=== PATIENT | male | born 1975 | race Caucasian/White ===

== ENCOUNTER 2019-08-21 04:57 | Outpatient (CLI) | payer MEDICARE ==
[~2019-08-21] VITALS: Ht 167.6 cm; Wt 84.1 kg
--- NOTE | ~2019-08-21 | HEMODYNAMI ---
PATIENT:BRAULIO BRANHAM MEDICAL RECORD: [id number] : 73 LOCATION:[facility] ADMISSION DATE: 08/21/19 Generatedon:08/21/20199:31 Patient name: BRAULIO BRANHAM Patient #: [id number] SSN: : 1975 Date of study: 08/21/2019 Page: Of Hemodynamic Procedure Report Patient Data Patient Demographics Procedure consent was obtained First Name: BRAULIO Gender: Male Last Name: CARROL : 1975 Patient #: [id number] Age: 44 year(s) Race: Unknown Additional ID: [id number] Contact details [address]: [address] [place] [address] State: [place] City: [place] Zip code: [address] Admission Admission Data Admission Date: 08/21/2019 Admission Time: 4:57 Procedure Procedure Types Cath Procedure Diagnostic Procedure LHC LHC w/Coronaries FFR/IVUS FFR Initial FFR Additional Sedation Charges Moderate Sedation up to 30 minutes PCI Procedure Coronary Stent Coronary Stent Initial x2 Hemochron ACT Test Procedure Description Procedure Date Procedure Date: 08/21/2019 Procedure Start Time: 8:56 Procedure End Time: 9:26 Procedure Staff Name Function Maxwell Knight MD Performing Physician Karyn Black RT Monitor Sary Kemp RT Scrub Angus Novak RN Nurse Procedure Data Cath Procedure Fluoroscopy Diagnostic fluoroscopy Total fluoroscopy Time: time: 10.7 min 10.7 min Diagnostic fluoroscopy Total fluoroscopy dose: dose: 1441 mGy 1441 mGy Contrast Material Contrast Material Type Amount (ml) Isovue 300 135 Entry Location Entry Primary Successful Side Size Upsize Upsize Entry Closure Varela ccessful Closure Location (Fr) 1 (Fr) 2 (Fr) Remarks Device Remarks Radial Right 6 Fr Mechanical artery Short Compression Estimated blood loss: 5 ml Diagnostic catheters Device Type Used For End Catheter Placement DIAGNOSTIC Virgil 110cm 5 Multi-vessel Fr catheter ([id number]) Angiography Procedure Complications No complications Procedure Medications Medication Administration Route Dosage 0.9% NaCl I.V. 100 ml/hr Oxygen etCO2 Nasal cannula 2 l/min Heparin Flush Bag added to field 2 bags (1000units/500ml NS) Lidocaine 2% added to field 20 Radial Cocktail added to field 1 syringe (Verapamil 2mg/Nitro 400mcg/Heparin 1500units) Versed I.V. 2 mg Fentanyl I.V. 100 mcg Radial Cocktail I.A. 1 syringe (Verapamil 2mg/Nitro 400mcg/Heparin 1500units) Versed I.V. 1 mg Fentanyl I.V. 100 mcg Lopressor I.V. 5 mg Heparin Bolus I.V. 4000 units Versed I.V. 1 mg Hemodynamics Rest Heart Rate: 93 (bpm) Pressure Samples Time Site Value (mmHg) Purpose Heart Use Rate(bpm) 8:59 LV 44/8,-1 Snapshot 108 Snapshots Pre Cath Intra NCS Post Cath Vital Signs Time Heart Resp SPO2 etCO2 NIBP (mmHg) Rhythm Pain Sedation Rate (ipm) (%) (mmHg) Status Level (bpm) 8:44:08 95 23 95 30.7 126/95(106) NSR 0 (11) 10(A) , No pain 8:48:10 91 20 95 31.4 132/99(116) NSR 0 (11) 10(A) , No pain 8:52:18 94 18 95 35.2 123/87(100) NSR 0 (11) 10(A) , No pain 8:56:22 96 16 94 38.2 123/84(103) NSR 0 (11) 10(A) , No pain 9:00:19 104 22 95 24 108/94(105) NSR 0 (11) 9(A) , No pain 9:04:23 93 19 92 33 117/70(95) NSR 0 (11) 9(A) , No pain 9:08:27 86 15 94 36 112/78(97) NSR 0 (11) 9(A) , No pain 9:12:28 87 16 94 36.7 123/80(107) NSR 0 (11) 10(A) , No pain 9:16:34 87 18 94 34.4 125/81(102) NSR 0 (11) 10(A) , No pain 9:20:40 86 16 96 35.2 116/72(91) NSR 0 (11) 9(A) , No pain 9:24:44 88 17 96 34.5 121/77(97) NSR 0 (11) 9(A) , No pain Medications Time Medication Route Dose Verified Delivered Reason Note s Effectiveness by by 8:43:37 0.9% NaCl I.V. 100 Angus Angus Per physician ml/hr Kishore Novak RN RN 8:43:45 Oxygen etCO2 2 l/min Angus Angus for low 02 sats Nasal Lorigan Kishore cannula RN RN 8:44:23 Heparin Flush added 2 bags Angus Angus used for Bag to Lorigan Lorigan procedure (1000units/500ml field RN RN NS) 8:44:35 Lidocaine 2% added 20ml Angus Angus for local to vial Lorigan Lorigan anesthetic field RN RN 8:44:45 Radial Cocktail added 1 Angus Angus used for (Verapamil to syringe Lorigan Lorigan procedure 2mg/Nitro field RN RN 400mcg/Heparin 1500units) 8:54:59 Versed I.V. 2 mg Angus Angus for sedation Kishore Novak RN RN 8:55:08 Fentanyl I.V. 100 mcg Angus Angus for sedation Kishore Novak RN RN 8:58:34 Radial Cocktail I.A. 1 Angus Maxwell for (Verapamil syringe Lissethigan Lonnieth MD vasodilation 2mg/Nitro RN 400mcg/Heparin 1500units) 8:58:42 Versed I.V. 1 mg Angus Angus for sedation Kishore Novak RN RN 8:59:12 Fentanyl I.V. 100 mcg Angus Angus for sedation Kishore Novak RN RN 9:03:58 Lopressor I.V. 5 mg Angus Angus Per physician Kishore Novak RN RN 9:07:33 Heparin Bolus I.V. 4000 Angus Angus for units Lorramila Novak anticoagulation RN RN 9:16:44 Versed I.V. 1 mg Angus Angus for sedation Kishore Novak RN heeler Log Time Note 8:19:12 Diagnostic Cath Status : Elective 8:19:27 Angus Novak RN sent for patient. Start room use. 8:19:29 Time tracking: Regular hours (M-F 7:00 - 5:00) 8:19:33 Plan of Care:Hemodynamics will remain stable., Cardiac rhythm will remain stable., Comfort level will be maintained., Respiratory function will remain adequate., Patient/ family verbilizes understanding of procedure., Procedure tolerated without complication., Recovers from procedure without complications.. 8:25:15 Risk of Mortality: 0.1 8:25:18 Risk of blood transfusion: 0.8 8:25:23 Risk of ANGELINE: 1.9 8:25:33 2) 60-89 Mildly reduced kidney function, and other findings (as for stage 1) point to kidney disease. 8:26:17 Maximum allowable contrast dose (3.7 X eGFR X 0.75)213 ml. 8:31:21 Patient received from ED to CCL 2 Alert and oriented. Tansferred to table in Supine position. 8:31:23 Warm blankets applied, and cass hugger turned on for patient comfort. 8:31:25 Signed procedure consent form obtained from patient. 8:31:26 Correct patient and procedure confirmed by team. 8:31:26 ECG and BP/O2 sat monitors applied to patient. 8:43:14 Vital chart was started 8:43:16 Baseline sample Acquired. 8:43:21 Rhythm: sinus rhythm 8:43:22 Full Disclosure recording started 8:43:36 H&P Date Dictated: 08/21/2019 ER History on chart.. 8:43:37 0.9% NaCl 100 ml/hr I.V. was administered by Angus Novak RN; Per physician; Verbal order read back and verified. 8:43:38 Pre-procedure instructions explained to patient. 8:43:38 Pre-op teaching completed and patient verbalized understanding. 8:43:39 Family in waiting room. 8:43:41 Patient NPO since Midnight. 8:43:43 Is the patient allergic to Iodine/contrast media? No. 8:43:45 Oxygen 2 l/min etCO2 Nasal cannula was administered by Angus Novak RN; for low 02 sats; Verbal order read back and verified. 8:43:45 Was the patient premedicated? Yes 8:44:12 Is patient on blood thinner?Yes 8:44:18 ACC The patient was administered the following blood thiners within the last 24 hours: ACCPlavix, ACCBrilinta 8:44:20 Patient diabetic? No. 8:44:23 Heparin Flush Bag (1000units/500ml NS) 2 bags added to field was administered by Angus Novak RN; used for procedure; Verbal order read back and verified. 8:44:23 Previous problem with sedation/anesthesia? No ? 8:44:25 Snore? Yes 8:44:27 Sleep apnea? No 8:44:29 Deviated septum? No 8:44:35 Lidocaine 2% 20ml vial added to field was administered by Angus Novak RN; for local anesthetic; Verbal order read back and verified. 8:44:45 Radial Cocktail (Verapamil 2mg/Nitro 400mcg/Heparin 1500units) 1 syringe added to field was administered by Angus Novak RN; used for procedure; Verbal order read back and verified. 8:45:03 Opens mouth fully? Yes 8:45:04 Sticks out tongue? Yes 8:45:06 Airway obstruction? No ? 8:45:09 Dentures? No ? 8:45:12 Pre procedure: right dorsailis pedis pulse 2+ Normal; easily identifiable; not easily obliterated 8:45:14 Pre procedure: left dorsailis pedis pulse 2+ Normal; easily identifiable; not easily obliterated 8:45:17 Patient pain scale 0/10 ?. 8:45:24 IV patent on arrival in Right upper arm with 0.9% NaCl at [facility]. 8:45:26 Lab results completed and on chart. 8:45:31 Right Radial & Right Groin area was prepped with chlora-prep and draped in sterile fashion 8:45:32 Alarms reviewed by R. N. 8:45:33 Sharps counted by scrub and verified by R.N. 8:45:36 Physician paged 8:52:50 Physician arrived 8:52:50 --------ALL STOP TIME OUT------ 8:52:51 Final Timeout: patient, procedure, and site verified with staff and physician. All members of the team are in agreement. 8:52:53 Right Radial & Right Groin site verified by team. 8:52:57 Fire Safety Assessment: A--An alcohol-based skin anteseptic being used preoperatively., C--Open oxygen or nitrous oxide is being used., D--An ESU, laser, or fiber-optic light is being used. 8:53:00 Physical assessment completed. ASA score P 2 - A patient with mild systemic disease as per Maxwell Knight MD. 8:53:04 Sedation plan: IV Moderate Sedation Medication:Versed, Fentanyl 8:53:51 Use device set Radial Dx or PCI 8:53:52 ACIST Syringe (73672) opened to sterile field. 8:53:52 Medline Cath Pack ([id number]) opened to sterile field. 8:53:52 Bag Decanter (2002S) opened to sterile field. 8:53:53 ACIST Hand Control (17858) opened to sterile field. 8:53:54 ACIST Manifold (60480) opened to sterile field. 8:53:54 Tegaderm 4 x 4 (1626W) opened to sterile field. 8:53:55 MBrace Wrist Support ([id number]) opened to sterile field. 8:53:57 SHEATH 6FR RAIN (5649622) opened to sterile field. 8:53:58 EMERALD Guide Wire (658-830) opened to sterile field. 8:54:59 Versed 2 mg I.V. was administered by Angus Novak RN; for sedation; Verbal order read back and verified. 8:55:08 Fentanyl 100 mcg I.V. was administered by Angus Novak RN; for sedation; Verbal order read back and verified. 8:56:38 Procedure started. 8:56:43 Local anesthetic to right radial artery with Lidocaine 2% by Maxwell Knight MD.INITIAL ACCESS ONLY 8:56:55 A 6 Fr Short sheath was inserted into the Right Radial artery 8:56:58 Zero performed for pressure channel P1 8:57:31 A DIAGNOSTIC Virgil 110cm 5 Fr catheter (452769) was advanced over the wire and used for Multi-vessel Angiography. 8:58:34 Radial Cocktail (Verapamil 2mg/Nitro 400mcg/Heparin 1500units) 1 syringe I.A. was administered by Maxwell Knight MD; for vasodilation; Verbal order read back and verified. 8:58:42 Versed 1 mg I.V. was administered by Angus Novak RN; for sedation; Verbal order read back and verified. 8:59:12 Fentanyl 100 mcg I.V. was administered by nAgus Novak RN; for sedation; Verbal order read back and verified. 8:59:55 LV hemodynamics recorded. 8:59:56 LV gram done using BURGESS 8:59:59 Injector settings: Ml/sec: 5, Volume: 15, 9:00:06 EF : 60 % 9:00:09 RCA angiography performed. 9:00:12 Injector settings: Ml/sec: 3, Volume: 6, 9:01:22 LCA angiography performed. 9:01:25 Injector settings: Ml/sec: 3, Volume: 6, 9:01:26 Catheter removed. 9:01:46 INFLATOR Merit BasixCompak (ZK2513) opened to sterile field. 9:01:46 LucidErarata Plus pressure wire (72707J) opened to sterile field. 9:01:47 GUIDE 6FR AR 2.0 catheter ([id number]) opened to sterile field. 9:01:55 ACCDominant side:Right 9:02:02 Proceeding to intervention. 9:02:03 ACC Pre-intervention MARTIN Flow is 3. 9:02:03 Pre PCI Site: [place] pRCA has 75% stenosis. 9:02:09 6 Fr ar 2 guide catheter was inserted over the wire 9:02:15 FFR/IFR wire advanced. 9:02:18 Baseline FFR 1. 9:03:16 GUIDE 6FR XBLAD 3.5 catheter ([id number]) opened to sterile field. 9:03:58 Lopressor 5 mg I.V. was administered by Angus Novak RN; Per physician; Verbal order read back and verified. 9:04:34 Wire advanced across lesion. 9:05:24 mRCA lesion measured at 0.76 with IFR 9:05:56 Wire removed. 9:06:04 CHOICE PT Extra Support 182cm wire ([id number]) opened to sterile field. 9:06:19 choice pt wire advanced. 9:07:33 Heparin Bolus 4000 units I.V. was administered by Angus Novak RN; for anticoagulation; Verbal order read back and verified. 9:07:48 Place stent Inflation Number: 1 A MIGUEL RX 3.5 x 15 stent ([id number]) was prepped and advanced across the Prox RCA 75. The stent was deployed at 19 ORESTES for 0:10 (min:sec) 0. 9:08:12 Inflation number: 1 The stent balloon was then re-inflated across the Mid RCA 75 to 19 ORESTES for 0:10 (min:sec) 0. 9:08:20 Inflation number: 2 The stent balloon was then re-inflated across the Mid RCA 0 to 19 ORESTES for 0:10 (min:sec) . 9:08:38 Inflation number: 1 The stent balloon was then re-inflated across the Dist RCA 75 to 19 ORESTES for 0:10 (min:sec) 0. 9:08:50 Inflation number: 2 The stent balloon was then re-inflated across the Dist RCA 0 to 13 ORESTES for 0:10 (min:sec) . 9:09:07 Inflation number: 3 The stent balloon was then re-inflated across the Dist RCA to 13 ORESTES for 0:10 (min:sec) . 9:10:09 Inflation number: 3 The stent balloon was then re-inflated across the Mid RCA to 21 ORESTES for 0:10 (min:sec) . 9:10:30 Stent catheter was removed intact over wire. 9:10:31 Wire removed. 9:10:31 Guide catheter removed. 9:10:49 6 Fr xblad 3.5 guide catheter was inserted over the wire 9:13:10 FFR/IFR wire advanced. 9:13:13 Baseline FFR 1. 9:16:17 ACT drawn and resulted at 306 seconds. (normal therapeutic range 180-240 seconds). 9:16:21 Wire advanced across lesion. 9:16:44 Versed 1 mg I.V. was administered by Angus Novak RN; for sedation; Verbal order read back and verified. 9:17:16 mCirc lesion measured at 0.95 with IFR 9:17:31 Wire redirected to lad. 9:17:37 Wire advanced across lesion. 9:17:45 mLAD lesion measured at 0.86 with IFR 9:19:40 Pre PCI Site: [place] mLAD has 85% stenosis. 9:20:18 Place stent Inflation Number: 1 A MIGUEL RX 2.25 x 15 stent ([id number]) was prepped and advanced across the Mid LAD 85. The stent was deployed at 15 ORESTES for 0:10 (min:sec) 0. 9:21:12 Stent catheter was removed intact over wire. 9:21:53 Inflation number: 2 The stent balloon was then re-inflated across the Mid LAD 85 to 17 ORESTES for 0:10 (min:sec) 0. 9:22:13 Inflation number: 3 The stent balloon was then re-inflated across the Mid LAD 0 to 17 ORESTES for 0:10 (min:sec) . 9:22:18 Inflation number: 4 The stent balloon was then re-inflated across the Mid LAD to 13 ORESTES for 0:10 (min:sec) . 9:23:25 Stent catheter was removed intact over wire. 9:23:26 Wire removed. 9:23: Guide catheter removed. 9:23:32 ZEPHYR REGULAR TR BAND (533013) opened to sterile field. 9:23:43 Sheath removed intact; hemostasis achieved with Mechanical Compression to the Right Radial artery. 9:23:47 Procedure ended.(Physican Out) 9:24:05 Fluoroscopy time 10.70 minutes. 9:24:09 Fluoroscopy dose: 1441 mGy 9:24:09 Flurop Dose total: 1441 9:24:15 Dose Area Product 14412 mGy/cm. 9:24:20 Contrast amount:Isovue 300 135ml. 9:24:23 Maximum allowable dose exceeded? No. 9:24:24 Sharps counted by scrub and verified by R.N. 9:24:27 [place] band inflated with 10cc of air. 9:24:29 Insertion/operative site no bleeding no hematoma. 9:24:35 Post right radial artery:stable 9:24:37 Post Procedure Pulses reassessed and unchanged 9:24:40 Post procedure rhythm: unchanged. 9:24:44 Estimated blood loss: 5 ml 9:24:46 Post procedure instruction explained to patient.Patient verbalizes understanding. 9:24:46 Patient needs reinforcement of post procedure teaching. 9:25:28 Procedure type changed to Cath procedure, Diagnostic procedure, C, [facility] w/Coronaries, FFR/IVUS, FFR Initial, FFR Additional, Sedation Charges, Moderate Sedation up to 30 minutes, PCI procedure, Coronary Stent, Coronary Stent Initial x2, Hemochron ACT Test 9:25:30 Procedure and supply charges have been captured, reviewed, submitted and are correct. 9:25:37 Procedure Complication : No complications 9:25:42 Vital chart was stopped 9::43 [facility] Findings: MVD- PCI performed (see procedure note) 9:25:45 Operative report dictated upon procedure completion. 9:25:45 See physician's report for complete and final results. 9:26:27 Report given to Pre/Post Procedure Room. 9:26:30 Patient transfered to Pre/Post Procedure Room with Stretcher. 9::32 Procedure ended. 9::32 Full Disclosure recording stopped 9:26:40 ACC-PCI Only Patient was given prescriptions, or instructed by Maxwell Knight MD to start/continue the following medications upon discharge: Plavix 9:26:42 End room use (Document Last) 9:30:50 End room use (Document Last) 9:31:38 End room use (Document Last) Intervention Summary Intervention Notes Time ActionType Lesion and Equipment Used Action# Pressure Duration Attributes 9:07:48 Place stent Prox RCA MIGUEL RX 3.5 x 1 19 00:10 15 stent ([id number]) 9:08:12 Reinflate Mid RCA MIGUEL RX 3.5 x 1 19 00:10 stent 15 stent balloon ([id number]) 9:08:20 Reinflate Mid RCA MIGUEL RX 3.5 x 2 19 00:10 stent 15 stent balloon ([id number]) 9:08:38 Reinflate Dist RCA MIGUEL RX 3.5 x 1 19 00:10 stent 15 stent balloon ([id number]) 9:08:50 Reinflate Dist RCA MIGUEL RX 3.5 x 2 13 00:10 stent 15 stent balloon ([id number]) 9:09:07 Reinflate Dist RCA MIGUEL RX 3.5 x 3 13 00:10 stent 15 stent balloon ([id number]) 9:10:09 Reinflate Mid RCA MIGUEL RX 3.5 x 3 21 00:10 stent 15 stent balloon ([id number]) 9:20:18 Place stent Mid LAD MIGUEL RX 2.25 x 1 15 00:10 15 stent ([id number]) 9:21:53 Reinflate Mid LAD MIGUEL RX 3.5 x 2 17 00:10 stent 15 stent balloon ([id number]) 9:22:13 Reinflate Mid LAD MIGUEL RX 3.5 x 3 17 00:10 stent 15 stent balloon ([id number]) 9:22:18 Reinflate Mid LAD MIGUEL RX 3.5 x 4 13 00:10 stent 15 stent balloon ([id number]) Device Usage Item Name Manufacture Quantity Catalog Number Hospital Part Current Minimal Lot# / Charge Number Stock Stock Serial# Code ACIST Syringe Acist 1 35083 903194 430947 [id number] 20 (31694) Medical Systems Inc Medline Cath Medline 1 [id number] 814593 67214 827100 5 Pack ([id number]) Bag Decanter Microtek 1 2001S 305116 57470 863952 5 (2001S) Medical Inc. ACIST Hand Acist 1 45415 243551 991229 798104 5 Control Medical (74388) Systems Inc ACIST Manifold Acist 1 23131 604453 323246 472434 5 (04015) Medical Systems Inc Tegaderm 4 x 4 3M 1 1626W 995919 202104 419945 5 (1626W) MBrace Wrist Advanced 1 140-0250-00 390109 57128 207810 5 Support Vascular (900199532) Dynamics SHEATH 6FR Cardinal 1 4696460 301976 4133719 807581 5 RAIN (0077692) [facility] Guide Cardinal 1 502-455 875207 922916 769038 5 Wire (502-455) Health DIAGNOSTIC Terumo 1 83-2089 687708 387524 377523 5 Virgil 110cm 5 Fr catheter (243276) INFLATOR Merit Merit 1 HU2969 983840 961636 801255 15 [facility] (ZF2388) [place] 1 55421Y 568459 [id number] 502949 5 Verrata Plus pressure wire (22368C) GUIDE 6FR AR Medtronic 1 [id number] 876481 64151 421780 1 2.0 catheter (AY1PM43) GUIDE 6FR Cardinal 1 [id number] 418044 480059 709067 10 XBLAD 3.5 Health catheter (29017218) CHOICE PT [place] 1 [id number] 344079 392408 322330 5 Extra Support Scientific 182cm wire (0820972M0) MIGUEL RX 3.5 x Medtronic 1 [id number] 174728 9867010 900507 5 [id number] 15 stent ([id number]) MIGUEL RX 2.25 x Medtronic 1 [id number] 796983 5682316 367218 5 [id number] 15 stent ([id number]) ZEPHYR REGULAR Cardinal 1 313640 055471 2177361 601779 5 [facility] (812849) Signature Audit [place] Stage Time Signature Unsigned Intra-Procedure 08/21/2019 Karyn Black 9:30:50 AM RT(R) Intra-Procedure 08/21/2019 Angus 9:31:38 AM Kishore RN Intra-Procedure 08/21/2019 Maxwell Knight 9:31:54 AM Signatures Performing Physician : Signature : Maxwell Knight MD Date : Time : Monitor : Karyn Black RT Signature : Date : Time : Nurse : Angus Novak Signature : RN Date : Time : [place] [address] [place] [id number]
[2019-08-21] MEDS ORDERED: BRILINTA90 MG PO (05:19)
[2019-08-21] MEDS ORDERED: TOPROL XL25 MG PO (05:19)
[2019-08-21] MEDS ORDERED: BAYER CHEWABLE81 MG PO (05:19)
[2019-08-21] MEDS ORDERED: LIPITOR80 MG PO (05:20)
[2019-08-21 05:22] LABS: BASOPHILS 0.3 % (0-2); EOSINOPHILS 2.8 % (0-7); HEMATOCRIT 44.1 % (42.0-54.0); HEMOGLOBIN 15.8 g/dL (13.5-17.5); IMMATURE GRANULOCYTES 0.5 % (0-5); LYMPHOCYTES 25.2 % (15-50); MCH 31.5 pg (26.0-34.0); MCHC 35.8 g/dL (31.0-37.0); MEAN PLATELET VOLUME 9.8 fL (7.4-10.4); MONOCYTES 5.3 % (2-11); NEUTROPHILS 65.9 % (40-80); PLATELET COUNT 377 10x3/uL (130-400); RBC 5.01 10x6/uL (4.20-6.10); RDW 12.7 % (11.5-14.5); WBC 18.4 10x3/uL (4.8-10.8)
[2019-08-21] MEDS ORDERED: PROZAC20 MG PO (05:26)
[2019-08-21] MEDS ORDERED: VALIUM10 MG PO (05:26)
[2019-08-21 05:40] LABS: APTT 28.8 SECONDS (22.8-39.4); CALC OSMOLALITY 284 mosm/kg (275-300); CALCIUM 9.5 mg/dL (8.5-10.1); CARBON DIOXIDE 28.3 mmol/L (21.0-32.0); CHLORIDE - SERUM 106 mmol/L (98-107); CREATININE - SERUM 1.1 mg/dL (0.6-1.3); GLUCOSE 131 mg/dL (74-106); INR 0.91 (0.85-1.17); POTASSIUM - SERUM 3.9 mmol/L (3.5-5.1); PROTIME 12.2 SECONDS (11.6-15.0); SODIUM 143 mmol/L (136-145); UREA NITROGEN 8 mg/dL (7-18); eGFR NON AFRICAN AMERICAN 77 mL/min (90-120)
[2019-08-21 06:01] LABS: ALBUMIN 3.9 g/dL (3.4-5.0); ALKALINE PHOSPHATASE 87 U/L (30-120); ALT (SGPT) 40 U/L (10-68); BILIRUBIN - TOTAL 0.24 mg/dL (0.2-1.3); CKMB 0.5 U/L (0.0-3.6); CREATINE KINASE 164 UL (21-232); PROTEIN - SERUM 8.3 g/dL (6.4-8.2)
[2019-08-21 06:09] LABS: TROPONIN-I < 0.017 ng/mL (0.000-0.060)
[2019-08-21 07:47] LABS: UDS - AMPHET NEGATIVE QUAL (NEGATIVE); UDS - BARB NEGATIVE QUAL (NEGATIVE); UDS - BENZO POSITIVE QUAL (NEGATIVE); UDS - COCAINE NEGATIVE QUAL (NEGATIVE); UDS - OPIATE POSITIVE QUAL (NEGATIVE); UDS - PCP NEGATIVE QUAL (NEGATIVE); UDS - THC NEGATIVE QUAL (NEGATIVE)
[2019-08-21 08:09] VITALS: Ht 167.6 cm; Wt 84.1 kg
[2019-08-21 08:17] LABS: APPEARANCE CLEAR (CLEAR); BACTERIA FEW /hpf (NEGATIVE); BILIRUBIN NEGATIVE (NEGATIVE); COLOR YELLOW (YELLOW); EPITHELIAL CELLS 0-5 /hpf (0-5); GLUCOSE NEGATIVE (NEGATIVE); KETONE NEGATIVE (NEGATIVE); NITRITE NEGATIVE (NEGATIVE); PROTEIN NEGATIVE (NEGATIVE); RED CELLS - URINE 0-5 /hpf (0-5); SPECIFIC GRAVITY 1.015 (1.005-1.020); UROBILINOGEN NORMAL (NORMAL); WHITE CELLS - URINE RARE /hpf (NEGATIVE)
[2019-08-21 08:31] VITALS: BP 134/90
--- NOTE | 2019-08-21 09:30 | HP ---
PATIENT: BRAULIO BRANHAM MEDICAL RECORD: [id number] ACCOUNT: [id number] LOCATION:[facility] : 73 ADMISSION DATE: 08/21/19 PCP: No PCP HISTORY AND PHYSICAL EXAMINATION DIAGNOSES: 1. Unstable angina class IV. 2. Coronary artery disease. 3. Status post multivessel percutaneous transluminal coronary angioplasty stent. 4. Hypertension. 5. Hyperlipidemia. HISTORY OF PRESENT ILLNESS: Mr. Branham presents with class IV unstable angina. He has been having episodes of chest pain. He is status post multivessel percutaneous transluminal coronary angioplasty stent. His last stents were the of this month in [place]. All his stents have been done in [place]. After that, he actually got much worse in his angina escalated to class IV. He was placed on metoprolol, Imdur. He is also on aspirin and Brilinta. He has continued to have episodes of chest pain. He has had multiple doses of morphine and nitro here in the Emergency Room, continues to have class IV anginal symptomatology. PHYSICAL EXAMINATION: CONSTITUTIONAL/GENERAL APPEARANCE: Well nourished, well developed, appears stated age. EYES: Lids and conjunctivae noninjected. No discharge. No pallor. ENT: Lips within normal limit. No cyanosis. No pallor. NECK: Carotid arteries, bilateral normal upstroke. No bruits. No thrills. No jugular venous pressure or distention. CERVICAL LYMPH NODES: Nontender. Nonenlarged. THYROID: Not enlarged. No nodules. CARDIOVASCULAR: Precordial exam, nondisplaced. No heaves or pericardial thrills. Rate and rhythm, regular. Heart sounds, normal S1, normal S2. No S3, no gallop, no rub. Systolic murmur, not heard. Diastolic murmur, not heard. RESPIRATORY: Respiratory effort, unlabored. Normal curvature. No thoracic deformity. No chest wall tenderness. Percussion, resonant. Auscultation, clear. No wheezes, no rales, no rhonchi. ABDOMEN: Soft, nondistended, nontender. No abdominal pain, no vomiting and normal appetite. MUSCULOSKELETAL: No joint tenderness, normal gait, normal tone. SKIN: Warm and dry. OVERALL IMPRESSION: Unstable angina. We will proceed with coronary angiography. Further care depends upon the findings of the angiography. TRANSINT:[id number] Voice Confirmation ID: [id number] DOCUMENT ID: [id number] HISTORY AND PHYSICAL [id number] BRAULIO BRANHAM JEFFREY MD at 0930 CC: [id number] DICTATION DATE: 08/21/19 08 SENIOR IT PROJECT MANAGER: 08/21/19 0833 [facility] [address] [id number]
[2019-08-21] MEDS ORDERED: PLAVIX75 MG (09:36)
--- NOTE | 2019-08-21 09:42 | NUR ---
PT ARRIVED BY STRETCHER. PLACED ON MONITORS. ASSESSMENT COMPLETED. VSS. CALL LIGHT WITHIN REACH. FAMILY AT BEDSIDE.
--- NOTE | 2019-08-21 09:57 | NUR ---
PT SITTING UP IN BED. ALERT AND ORIENTED. DENIES NAUSEA/PAIN. SET UP WITH DRINK AND SANDWICH TRAY. FAMILY AT BEDSIDE. CALL LIGHT WITHIN REACH. RIGHT WRIST Z BAND IN PLACE. NO BLEEDING/HEMATOMA NOTED.
--- NOTE | 2019-08-21 10:25 | NUR ---
DR. MICHAELS AT BEDSIDE. SPEAKING WITH PT AND PT'S FAMILY. THEY VOICED UNDERSTANDING. CALL LIGHT WITHIN REACH. FAMILY AT BEDSIDE. VSS. RIGHT WRIST Z BAND IN PLACE. NO BLEEDING/HEMATOMA NOTED.
--- NOTE | 2019-08-21 10:55 | NUR ---
RIGHT WRIST Z BAND IN PLACE. NO BLEEDING/HEMATOMA NOTED. CALL LIGHT WITHIN REACH. FAMILY AT BEDSIDE. VSS.
--- NOTE | 2019-08-21 11:25 | NUR ---
rv service technician at bedside
--- NOTE | 2019-08-21 12:00 | NUR ---
PT SITTING UP IN BED. VSS. CALL LIGHT WITHIN REACH.
--- NOTE | 2019-08-21 12:30 | NUR ---
4cc OF AIR REMOVED FROM Z BAND. NO BLEEDING/HEMATOMA NOTED. CALL LIGHT WITHIN REACH. PT HAS DRESSED HIMSELF AND UNHOOKED HIMSELF FROM THE WIRES TO AMBULATE TO RESTROOM. BACK TO BED. NO OTHER NEEDS AT THIS TIME.
--- NOTE | 2019-08-21 12:45 | NUR ---
3cc OF AIR REMOVED FROM Z BAND. NO BLEEDING/HEMATOMA NOTED.
--- NOTE | 2019-08-21 13:00 | NUR ---
Z BAND REMOVED AND DRESSING APPLIED. NO BLEEDING/HEMATOMA NOTED. RIGHT WRIST ARM BOARD IN PLACE. DISCUSSED DISCHARGE INSTRUCTIONS WITH PT. HE VOICED UNDERSTANDING.
--- NOTE | 2019-08-21 13:10 | NUR ---
PIV D/C'D WITH CATH TIP INTACT. TOLERATED WELL. INSTRUCTED TO GET UP AND DRESSED.
--- NOTE | 2019-08-21 13:15 | NUR ---
RIGHT WRIST DRESSING C/D/I. NO S/S OF HEMATOMA NOTED. PT TAKEN OUT TO VEHICLE BY WHEELCHAIR. NO S/S OF DISTRES SNOTED. ALL BELONGINGS AND PAPERWORK IN HAND.
--- NOTE | 2019-08-22 12:54 | OP ---
PATIENT NAME: BRAULIO BRANHAM MEDICAL RECORD: [id number] :73 LOCATION:D[facility]CAT ADMISSION DATE: SURGEON: ALEX MICHAELS MD DATE OF OPERATION: 08/21/2019 PROCEDURES: 1. PTCA stent RCA. 2. PTCA stent LAD. 3. IFR RCA. 4. IFR LAD. 5. IFR left circumflex. 6. Left heart catheterization. 7. Selective coronary angiography. 8. Left ventriculogram. INDICATION: Unstable angina and coronary artery disease. DESCRIPTION OF PERFORMED: After informed consent was obtained and after a detailed description of risks, benefits as well as alternative therapies, the patient elected to proceed with angiogram and angioplasty. The right radial area was prepped and draped in normal sterile fashion. Right radial artery was cannulated via modified Seldinger technique with placement of 6-[place]awk sheath. All catheters exchanged through this sheath. FINDINGS: Left ventriculogram was performed in standard 30-degree BURGESS view, reveals preserved cardiac wall motion, ejection fraction 55%. SELECTIVE CORONARY ANGIOGRAPHY: 1. Left main is with no significant angiographic disease. 2. Left circumflex has moderate irregularities, but IFR was normal at 0.95. 3. Left anterior descending has previously placed stents, these appear to be grossly under deployed proximally. There is an 85% stenosis in the mid vessel. IFR was abnormal at 0.86. 4. The right coronary has multiple previously placed stents. These appear to be grossly under deployed. There is 75% stenosis in the proximal vessel. IFR was abnormal at 0.76. PTCA STENT OF THE RCA: The stent used was a 3.5 x 15 mm [place]. The 3.5 stent balloon was then used throughout the stenting to expand the stents further, some marked improvement in the vessel after this, was 0% residual stenosis. The vessel appeared much bigger than it was initially. PTCA STENT OF THE LAD: The stent used was a 2.25 x 15 mm [place]. The 3.5 stent balloon from the RCA was then used in the proximal stents were grossly under deployed. Multiple inflations were made up to 19 atmospheres. There is marked improvement in her vessel, marked improvement in the flow. The vessel size was markedly improved and there was 0% residual stenosis. OVERALL IMPRESSION: Successful PTCA stent of the RCA and LAD, both going from 75% to 85% initial stenosis to 0% residual. TRANSINT:[id number] Voice Confirmation ID: [id number] DOCUMENT ID: [id number] OPERATIVE REPORT [id number] BRAULIO BRANHAM, ALEX GARCIA at 1254 CC: [id number] DICTATION DATE: 08/21/19 0928 WELLNESS EDUCATOR: 08/21/19 1359 DEP CLI 08/21/19 [place] [id number] [place] [id number]
--- NOTE | 2019-08-22 12:54 | EC ---
PATIENT:BRAULIO BRANHAM DATE OF SERVICE: 08/21/19 SEX: M MEDICAL RECORD: [id number] DATE OF : 73 LOCATION:D[facility] AGE OF PATIENT: 44 ADMISSION DATE: 08/21/19 REFERRING PHYSICIAN: INTERPRETING PHYSICIAN: ALEX KNIGHT MD ECHOCARDIOGRAM REPORT ECHO CHARGES 4 ECHO COMPLETE Date: 08/21/19 CLINICAL DIAGNOSIS: SOB ECHOCARDIOGRAPHIC MEASUREMENTS (adult normal given) AC root (d.<3.7cm) 2.7 cm LV Septum d (<1.2 cm> 1.3 cm Valve Excursion 1.8 cm LV Septum (systole) 2.0 cm Left Atria (s.<4.0cm> 3.7 cm LVPW d(<1.2cm) 1.3 cm RV (d.<2.3cm) 2.2 cm LVPW (sytole) 2.2 cm LV diastole(<5.6CM) 5.0 cm MV E-F(>70mm/sec) cm LV systole 2.8 cm LVOT Diameter 1.9 cm MV exc.(>10mm) cm Est.ejection fraction (50-75%) % DOPPLER: LVIT cm/sec A 59.0 cm/sec E 83.0 cm/sec LA cm/sec RVSP 19.0 mmHg LVOT 85.0 cm/sec AOP1/2T m/s Asc. Ao 145 cm/sec RVOT 52.0 cm/sec RA cm/sec PA 82.0 cm/sec AV Gradient Peak 84 mmHg AV Mean 4.4 mmHg AV Area 1.4 cm MV Gradient Peak 3.6 mmHg MV Mean 1.4 mmHg MV Area cm COMMENTS: Band Sewer: Flor CONROYOE Pulp And Paper Tester: 1 Dr. Knight TAPE# PACS Pericardial Effusion N DATE OF SERVICE: 08/21/2019 FINDINGS: 1. Left ventricular chamber size is within normal limits. Left ventricular systolic function is normal. Overall ejection fraction estimated at 50% to 5%. 2. Left atrium, right atrium and right ventricular chamber sizes are within normal limits. 3. Valvular structures have normal structure and motion. 4. Doppler interrogation reveals trace aortic insufficiency, trace mitral regurgitation, no other valvular insufficiency or stenosis. Pulmonary systolic ECHOCARDIOGRAM REPORT [id number] BRAULIO BRANHAM pressure is normal estimated at 19 mmHg. 5. No evidence of pericardial effusion or left ventricular thrombus. TRANSINT:[id number] Voice Confirmation ID: [id number] DOCUMENT ID: [id number] ALEX KNIGHT MD at 1254 CC: [id number] DICTATION DATE: 08/21/19 1506 RANGE FEEDER: 08/21/19 2257 DEP CLI 08/21/19 [place] [id number] [place] [id number]
== END 2019-08-21 13:15 | disposition home or self-care (01) ==
LOC: D.ER 04:57 → D.CATH 04:57 → D.ER 08:32 → EDSTATUS 08:40 → D.CLR 09:35 → D.CATH 13:15
PROVIDERS: Family Medicine; ATTEND Internal Medicine Interventional Cardiology
DX: I25.110 Atherosclerotic heart disease of native coronary artery with unstable angina pectoris (principal); I10 Essential (primary) hypertension; E78.5 Hyperlipidemia, unspecified; Z95.5 Presence of coronary angioplasty implant and graft
CPT/HCPCS: 93458; 93571; 93572 ×2; C9600 ×2